=== PATIENT | male | born 1995 | race African-American/Black ===

== ENCOUNTER 2017-06-03 11:53 | Emergency (ER) | payer OTHER ==
[~2017-06-03] VITALS: Ht 177.8 cm; Wt 72.7 kg
[2017-06-03] MEDS ORDERED: IBUPROFEN 600 MG TAB PO ONE (12:30)
[2017-06-03] MEDS ORDERED: IBUP-1022 PO (13:22)
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
[2017-06-03 13:43] VITALS: BP 110/64
== END 2017-06-03 13:46 | disposition home or self-care (01) ==
LOC: M ED 11:53 → EDBD 11:53 → M ED 13:46
DX: S80.811A Abrasion, right lower leg, initial encounter (principal); S80.812A Abrasion, left lower leg, initial encounter; S80.11XA Contusion of right lower leg, initial encounter; S80.12XA Contusion of left lower leg, initial encounter; V49.40XA Driver injured in collision with unspecified motor vehicles in traffic accident, initial encounter; Y92.410 Unspecified street and highway as the place of occurrence of the external cause; Y93.89 Activity, other specified; Y99.9 Unspecified external cause status